=== PATIENT | male | born 1985 | race Caucasian/White ===

== ENCOUNTER 2017-02-10 16:24 | Emergency (ER) | payer MEDICARE, OTHER ==
[2017-02-10 17:09] LABS: BASO % 0.1 % (0.2-1.2); EOS # 0.1 10_X3_uL (0.0-0.5); EOS % 0.4 % (0.8-7.0); GRAN # 12.3 10_X3_uL (1.8-5.4); GRAN % 89.7 % (34.0-67.9); HEMATOCRIT 45.4 % (40-51); HEMOGLOBIN 15.5 g/dL (13.7-17.5); LYMPH # 0.6 10_X3_uL (1.3-3.6); LYMPH % 4.4 % (21.8-53.1); MEAN CORPUSCULAR HEMOGLOBIN 31.3 pg (27.0-33.0); MEAN CORPUSCULAR HGB CONC 34.1 g/dL (32.0-36.0); MEAN CORPUSCULAR VOLUME 91.7 fL (79-92); MEAN PLATELET VOLUME 10.4 fl (7.5-11.5); MONO # 0.7 10_X3_uL (0.3-0.8); MONO % 5.4 % (5.3-12.2); PLATELET COUNT 251 x10_3/uL (163-337); RED BLOOD COUNT 4.95 x10_6/uL (4.6-6.1); RED CELL DISTRIBUTION WIDTH 13.3 % (11.6-14.4); WHITE BLOOD COUNT 13.7 x10_3/uL (4.2-9.1)
[2017-02-10 17:27] LABS: ALBUMIN 4.6 gm/dL (3.4-5.0); ALKALINE PHOSPHATASE 90 U/L (50-136); ALT/SGPT 23 U/L (7.53-40.17); AMYLASE 49 U/L (15.62-74.58); AST/SGOT 21 U/L (6.66-35.34); BILIRUBIN,TOTAL 0.49 mg/dL (0.0-1.0); BLOOD UREA NITROGEN 15 mg/dL (7-18); CALCIUM 9.3 mg/dL (8.7-10.7); CARBON DIOXIDE 21 mmol/L (21-32); CREATININE 0.8 mg/dL (0.6-1.3); GLUCOSE,RANDOM 121 mg/dL (70-99); LIPASE 24 U/L (6.75-60.75); POTASSIUM 4.3 mmol/L (3.5-5.1); SODIUM 138 mmol/L (136-145); TOTAL PROTEIN 8.1 gm/dL (6.4-8.2)
== END 2017-02-10 21:07 | disposition home or self-care (01) ==
LOC: ER 16:24
PROVIDERS: Emergency Medicine
DX: A04.9 Bacterial intestinal infection, unspecified (principal); R11.2 Nausea with vomiting, unspecified; Z79.899 Other long term (current) drug therapy
CPT/HCPCS: 36415; 74150; 80053; 82150; 83690; 85025; 96360; 96372; 99070; 99283; 99283-25; J8597